=== PATIENT | female | born 1985 | race African-American/Black ===

== ENCOUNTER 2023-07-16 14:37 | Emergency (ER) | payer OTHER ==
[2023-07-16 15:13] LABS: Bilirubin Small (Negative); Blood, Urine Negative (Negative); Clarity Clear (Clear); Glucose, Urine (Dipstick) Negative (Negative); Ketone, Urine 40 mg/dL (Negative); Leukocyte Negative (Negative); Nitrite Negative (Negative); Protein, Urine (Dipstick) 30 mg/dL (Neg-Trace); Specific Gravity, Urine 1.026 (1.002-1.036)
[2023-07-16 15:14] LABS: Bacteria/HPF Rare-Few HPF (None Seen); CAUTI Indications for Culture Dysuria,urgency,freq; Mucous/LPF 2+ LPF (<2+); RBC/HPF 0-3 HPF (0-3); Squamous Epithelial 0-3 HPF (0-3); WBC/HPF None Seen HPF (0-3)
[2023-07-16 15:15] LABS: Urine Culture Reflex No No
== END 2023-07-16 15:40 | disposition home or self-care (01) ==
LOC: NAV ERS 14:37
DX: R30.0 Dysuria (principal)
CPT/HCPCS: 81001; 87086; 99283

== ENCOUNTER 2025-10-24 11:29 | Emergency (ER) | payer OTHER, SELFPAY | END 2025-10-24 12:36 | disposition home or self-care (01) | LOC: NAV ERS 11:29 | DX: H61.21 Impacted cerumen, right ear (principal) | CPT/HCPCS: 69209; 99282 ==